=== PATIENT | male | born 1975 | race Caucasian/White ===

== ENCOUNTER 2022-02-28 22:14 | Emergency (ER) | payer SELFPAY ==
[2022-02-28 23:41] LABS: Basophils # (Auto) 0.1 K/mm3 (0.0-0.1); Basophils % (Auto) 1.3 % (0.0-1.8); Eosinophils % (Auto) 0.8 % (0.0-4.3); Hematocrit 34.4 % (35.5-45.6); Hemoglobin 11.5 gm/dl (11.8-15.2); Lymphocytes # (Auto) 1.3 K/mm3 (1.2-5.4); Mean Corpuscular HGB Conc 33 % (32-34); Mean Corpuscular Volume 89 fl (84-94); Monocytes # (Auto) 0.4 K/mm3 (0.0-0.8); Monocytes % (Auto) 8.1 % (0.0-7.3); Platelet Count 260 K/mm3 (140-440); Red Blood Count 3.85 M/mm3 (3.65-5.03); Red Cell Distribution Width 14.3 % (13.2-15.2)
[2022-03-01] LABS: BUN/Creatinine Ratio 12; Blood Urea Nitrogen 13 mg/dL (9-20); Calcium 9.7 mg/dL (8.4-10.2); Hemolysis Index 2
[2022-03-01 00:38] LABS: Bilirubin,Urine NEG (Negative); Blood,Urine NEG (Negative); Color,Urine Straw (Yellow); Protein,Urine <15 mg/dL mg/dL (Negative); Urobilinogen,Urine < 2.0 mg/dL (<2.0); WBC,Urine < 1.0 /HPF (0.0-6.0)
[2022-03-01 00:46] LABS: Amphetamine Screen,Urine PRESUMPTIVE NEGATIVE; Benzodiazepines Screen,Urine PRESUMPTIVE NEGATIVE; Cannabinoid Screen,Urine PRESUMPTIVE NEGATIVE; Cocaine Screen,Urine PRESUMPTIVE POSITIVE; Methadone Screen,Urine PRESUMPTIVE NEGATIVE; Opiate Screen,Urine PRESUMPTIVE NEGATIVE
[2022-03-01 00:48] LABS: RBC,Urine < 1.0 /HPF (0.0-6.0)
--- NOTE | 2022-03-01 14:53 | Emergency Department Report ---
ED General Adult HPI - General Chief complaint: Psych Stated complaint: DETOX Time Seen by Provider: 03/01/22 14:51 Source: patient Mode of arrival: Ambulatory Limitations: No Limitations - History of Present Illness Initial comments: patient presents with complaints of feeling depressed and having suicidal thoughts, including in the last 3 days. States this has been leading him to drink alcohol and use drugs. Denies visual, auditory hallucinations. Denies CP, SOB, palpitations. - Related Data Allergies Allergy/AdvReac Type Severity Reaction Status Date / Time No Known Allergies Allergy Verified 02/28/22 22:46 ED Review of Systems ROS: Stated complaint: DETOX Other details as noted in HPI Comment: All other systems reviewed and negative Constitutional: denies: chills, fever ED Past Medical Hx - Past Medical History Previous Medical History?: Yes ED Physical Exam - General Limitations: No Limitations General appearance: alert, in no apparent distress - Head Head exam: Present: atraumatic, normocephalic - Eye Eye exam: Present: PERRL, EOMI - ENT ENT exam: Present: mucous membranes moist, other (airway patent) - Neck Neck exam: Present: other (supple; no JVD) - Respiratory Respiratory exam: Present: other (good air entry, nml I:E, CTAB, no use of DANE) - Cardiovascular Cardiovascular Exam: Present: regular rate. Absent: rubs, gallop - GI/Abdominal GI/Abdominal exam: Present: soft, normal bowel sounds. Absent: distended, tenderness - Extremities Exam Extremities exam: Present: full ROM. Absent: tenderness - Back Exam Back exam: Present: full ROM. Absent: tenderness - Neurological Exam Neurological exam: Present: alert, oriented X3, CN II-XII intact. Absent: motor sensory deficit - Psychiatric Psychiatric exam: Present: normal affect, suicidal ideation. Absent: homicidal ideation - Skin Skin exam: Present: warm, normal color ED Course Vital Signs 02/28/22 22:29 Temperature 98.5 F Pulse Rate 110 H Respiratory 18 Rate Blood Pressure 135/83 O2 Sat by Pulse 98 Oximetry ED Medical Decision Making - Lab Data Result diagrams: 02/28/22 23:28 02/28/22 23:28 Laboratory Tests 02/28/22 02/28/22 02/28/22 23:28 23:28 23:28 WBC RBC Hgb Hct MCV MCH MCHC RDW Plt Count Lymph % (Auto) [place] % (Auto) Eos % (Auto) Baso % (Auto) Lymph # (Auto) [place] # (Auto) Eos # (Auto) Baso # (Auto) Seg Neutrophils % Seg Neutrophils # Sodium 137 Potassium 4.4 Chloride 100.4 Carbon Dioxide 23 Anion Gap 18 BUN 13 Creatinine 1.1 Estimated GFR > 60 BUN/Creatinine Ratio 12 Glucose 93 Calcium 9.7 Urine Color Urine Turbidity Urine pH Ur Specific Solo Urine Protein Urine Glucose (UA) Urine Ketones Urine Blood Urine Nitrite Urine Bilirubin Urine Urobilinogen Ur Leukocyte Esterase Urine WBC (Auto) Urine RBC (Auto) U Epithel Cells (Auto) Salicylates < 0.3 L Urine Opiates Screen Urine Methadone Screen Acetaminophen 5.0 L Ur Barbiturates Screen Ur Phencyclidine Scrn Ur Amphetamines Screen U Benzodiazepines Scrn Urine Cocaine Screen U Marijuana (THC) Screen Drugs of Abuse Note Plasma/Serum Alcohol 02/28/22 02/28/22 02/28/22 23:28 23:28 Unknown WBC 4.3 L RBC 3.85 Hgb 11.5 L Hct 34.4 L MCV 89 MCH 30 MCHC 33 RDW 14.3 Plt Count 260 Lymph % (Auto) 31.0 [place] % (Auto) 8.1 H Eos % (Auto) 0.8 Baso % (Auto) 1.3 Lymph # (Auto) 1.3 [place] # (Auto) 0.4 Eos # (Auto) 0.0 Baso # (Auto) 0.1 Seg Neutrophils % 58.8 Seg Neutrophils # 2.5 Sodium Potassium Chloride Carbon Dioxide Anion Gap BUN Creatinine Estimated GFR BUN/Creatinine Ratio Glucose Calcium Urine Color Straw Urine Turbidity Clear Urine pH 8.0 H Ur Specific Solo 1.009 Urine Protein <15 mg/dl Urine Glucose (UA) Neg Urine Ketones Neg Urine Blood Neg Urine Nitrite Neg Urine Bilirubin Neg Urine Urobilinogen < 2.0 Ur Leukocyte Esterase Neg Urine WBC (Auto) < 1.0 Urine RBC (Auto) < 1.0 U Epithel Cells (Auto) < 1.0 Salicylates Urine Opiates Screen Urine Methadone Screen Acetaminophen Ur Barbiturates Screen Ur Phencyclidine Scrn Ur Amphetamines Screen U Benzodiazepines Scrn Urine Cocaine Screen U Marijuana (THC) Screen Drugs of Abuse Note Plasma/Serum Alcohol 0.05 02/28/22 Unknown WBC RBC Hgb Hct MCV MCH MCHC RDW Plt Count Lymph % (Auto) [place] % (Auto) Eos % (Auto) Baso % (Auto) Lymph # (Auto) [place] # (Auto) Eos # (Auto) Baso # (Auto) Seg Neutrophils % Seg Neutrophils # Sodium Potassium Chloride Carbon Dioxide Anion Gap BUN Creatinine Estimated GFR BUN/Creatinine Ratio Glucose Calcium Urine Color Urine Turbidity Urine pH Ur Specific Solo Urine Protein Urine Glucose (UA) Urine Ketones Urine Blood Urine Nitrite Urine Bilirubin Urine Urobilinogen Ur Leukocyte Esterase Urine WBC (Auto) Urine RBC (Auto) U Epithel Cells (Auto) Salicylates Urine Opiates Screen Presumptive negative Urine Methadone Screen Presumptive negative Acetaminophen Ur Barbiturates Screen Presumptive negative Ur Phencyclidine Scrn Presumptive negative Ur Amphetamines Screen Presumptive negative U Benzodiazepines Scrn Presumptive negative Urine Cocaine Screen Presumptive positive U Marijuana (THC) Screen Presumptive negative Drugs of Abuse Note Disclamer Plasma/Serum Alcohol - Medical Decision Making Patient medically cleared; 1013 signed. consulted. Critical care attestation.: If time is entered above; I have spent that time in minutes in the direct care of this critically ill patient, excluding procedure time. ED Disposition Clinical Impression: Suicidal ideation, Alcohol intoxication, Cocaine abuse Disposition: 30 STILL A PATIENT Is pt being admited?: No Does the pt Need Aspirin: No Condition: Stable Time of Disposition: 21:00 (Patient cvare transferred to Dr. Lion (oncoming ER doc). Sign out was given by me to him. )
--- NOTE | 2022-03-02 11:05 | Consultation ---
History of Present Illness - Reason for Consult Consult date: 03/02/22 Reason for consult: SI - History of Present Psychiatric Illness The patient is a 47 year old male with history of MDD, PTSD, and BPD who presents to the ED with suicidal ideation. In my encounter with the patient, he is calm, alert and oriented x3. The patient states he is homeless needing help with placement. The patient denies any current suicidal/homicidal ideation and denies hallucinations. PAST PSYCHIATRIC HISTORY: Diagnose:MDD, PTSD, BPD Suicide attempts or Self-harm behavior: Yes Prior psychiatric hospitalizations: Yes Substance Abuse history: Cocaine, alcohol Previous psychiatric medications tried: Trazodone, Vistaril Outpatient treatment: [place] PAST MEDICAL HISTORY: unknown Family Psychiatric History: None reported or documented SOCIAL HISTORY Marital Status: Single Living Arrangements: Homeless Employment Status: Unemployed Access to guns/weapons: Denies Education: college History of Abuse: Denies Legal History: Denies REVIEW OF SYSTEMS Constitutional: Negative for weight loss ENT: Negative for stridor Respiratory: Negative for cough or hemoptysis All other systems reviewed and are negative MENTAL STATUS EXAMINATION General Appearance and Behavior: Age appropriate, good hygiene, wearing appropriate clothes. cooperative Cooperation: Cooperative Psychomotor Behavior: Psychomotor normal Mood:OK Affect and affective range: Congruent Thought Process: Goal directed Thought Content: Reality oriented Speech: Normal Suicidal Ideation: Denies Homicidal Ideation: Denies Hallucinations: Denies Delusions: None elicited Impulse Control: Normal Insight and Judgment: Limited insight and judgment Memory: Limited Attention: attentive Orientation: a/o x 3 Assessment (1) Major depressive disorder Treatment Plan Case management DC 1013 Trazodone 100mg po QHS Vistaril 25mg po BID Sitter: per primary Medical: per primary Disposition: Do not recommend acute psychiatric inpatient treatment. [facility] T[facility] Assistant will provide patient with psychiatric outpatient resources. Will sign off. Thanks Case staffed with Dr. Hamlin Medications and Allergies Medications and Allergies Allergies Allergy/AdvReac Type Severity Reaction Status Date / Time No Known Allergies Allergy Verified 02/28/22 22:46 Home Medications Medication Instructions Recorded Confirmed Last Taken Type hydrOXYzine PAMOATE [Vistaril] 25 mg PO BID 30 Days #60 cap 03/02/22 Unknown Rx traZODone [Desyrel] 100 mg PO QHS 30 Days #30 tablet 03/02/22 Unknown Rx Mental Status Exam - Vital signs Last Vital Signs Temp 97.9 F 03/01/22 20:37 Pulse 76 03/01/22 20:37 Resp 18 03/01/22 20:37 BP 117/82 03/01/22 20:37 Pulse Ox 98 03/01/22 20:37 Results Result Diagrams: 02/28/22 23:28 02/28/22 23:28 All other labs normal.
[2022-03-02 17:53] VITALS: BP 134/82
== END 2022-03-02 17:53 | disposition still patient (30) ==
LOC: ED 22:14
DX: R45.851 Suicidal ideations (principal); F10.129 Alcohol abuse with intoxication, unspecified; F14.10 Cocaine abuse, uncomplicated; Z20.822 Contact with and (suspected) exposure to COVID-19
CPT/HCPCS: 36415; 80048; 80307; 81001; 85025; 99284; U0003; 80320; 99283; G0480

== ENCOUNTER 2022-03-05 08:20 | Emergency (ER) | payer SELFPAY | END 2022-03-05 16:29 | disposition left against medical advice (07) | LOC: ED 08:20 | DX: A05.9 Bacterial foodborne intoxication, unspecified (principal); Z53.21 Procedure and treatment not carried out due to patient leaving prior to being seen by health care provider ==

== ENCOUNTER 2022-03-13 00:15 | Emergency (ER) | payer SELFPAY ==
[2022-03-13 05:46] VITALS: BP 108/77
== END 2022-03-13 14:12 | disposition left against medical advice (07) ==
LOC: ED 00:15
DX: L02.91 Cutaneous abscess, unspecified (principal); Z53.21 Procedure and treatment not carried out due to patient leaving prior to being seen by health care provider

== ENCOUNTER 2022-03-14 01:12 | Emergency (ER) | payer SELFPAY ==
[2022-03-14 02:02] VITALS: BP 137/89
== END 2022-03-14 12:59 | disposition left against medical advice (07) ==
LOC: ED 01:12
DX: Z13.30 Encounter for screening examination for mental health and behavioral disorders, unspecified (principal); Z53.21 Procedure and treatment not carried out due to patient leaving prior to being seen by health care provider

== ENCOUNTER 2022-04-01 02:24 | Emergency (ER) | payer SELFPAY ==
[2022-04-01 02:33] VITALS: BP 126/81
== END 2022-04-01 05:00 | disposition left against medical advice (07) ==
LOC: ED 02:24
DX: K12.2 Cellulitis and abscess of mouth (principal); Z53.21 Procedure and treatment not carried out due to patient leaving prior to being seen by health care provider

== ENCOUNTER 2022-04-05 00:59 | Emergency (ER) | payer SELFPAY ==
[2022-04-05 03:28] VITALS: BP 115/79
== END 2022-04-05 10:50 | disposition left against medical advice (07) ==
LOC: ED 00:59
DX: G43.909 Migraine, unspecified, not intractable, without status migrainosus (principal); Z53.21 Procedure and treatment not carried out due to patient leaving prior to being seen by health care provider